=== PATIENT | male | born 1980 | race Two or more races ===

== ENCOUNTER 2022-04-15 13:02 | Outpatient (CLI) | payer OTHER | END 2022-04-15 23:59 | disposition home or self-care (01) | LOC: LAB 13:02 | PROVIDERS: ATTEND Surgery | DX: Z01.812 Encounter for preprocedural laboratory examination (principal); Z20.822 Contact with and (suspected) exposure to COVID-19 | CPT/HCPCS: U0003; C9803 ==

== ENCOUNTER 2022-04-22 07:01 | Inpatient (IN) | payer OTHER ==
[2022-04-22] VITALS (10 sets, daily range): BP systolic 110–165; BP diastolic 67–107
[~2022-04-22] VITALS: Ht 172.7 cm; Wt 183.7 kg
--- NOTE | 2022-04-22 07:15 | NUR ---
RN Receiving Report PT AOx4, able to express his own concerns. Arrived to unit walking. Patient states he is here for a surgery, consents. Patient able to provide his own medical history. Reviewed Consent and procedure, initiated IV on left hand 18g saline lock, no sign of infiltration, intact. Pt signed consents for Blood transfusion, anesthesia and procedure. Blood Sugar 77. Vital Signs are Stable. Educated patient on importance of post op care. All safety precautions taken, call light and table within reach, bed at lowest position.
[2022-04-22] MEDS ORDERED: BUPIVACAINE MPF 0.5% W/EPI INJ 30 ML VIAL ONE (07:24)
[2022-04-22] MEDS ORDERED: LIDOCAINE 1% INJ 50 ML MDV IJ ONE (07:25)
[2022-04-22] MEDS ORDERED: LIDOCAINE HCL/MPF 1% 30 ML VIAL IJ ONE (07:45)
[2022-04-22] MEDS ORDERED: ROCURONIUM BROMIDE 50 MG/5 ML ONE ×2 (09:15→12:40)
[2022-04-22] MEDS ORDERED: MIDAZOLAM HCL 2 MG/2ML VIAL ONE (09:15)
[2022-04-22] MEDS ORDERED: FENTANYL PF 100MCG/2ML AMPUL ONE (09:15)
[2022-04-22] MEDS ORDERED: HYDROMORPHONE INJ 2 MG/ML DISP.SYRIN ONE (09:15)
--- NOTE | 2022-04-22 09:15 | NUR ---
Surgery Accounting Assistant Pt picked up by surgery transport team. Pt AOx4 and to express his concerns, all questions answers pt states he is ready for procedure. NPO since 04/21/2022 @2320. IV patent. Pt stable.
[2022-04-22] MEDS ORDERED: SEMA1PEN SUBCUT (09:17)
[2022-04-22] MEDS ORDERED: ATOR10TA PO (09:17)
[2022-04-22] MEDS ORDERED: INSU200I4 SQ (09:17)
[2022-04-22] MEDS ORDERED: BUPR-319 PO (09:17)
[2022-04-22] MEDS ORDERED: DULO60CA64 PO (09:17)
[2022-04-22] MEDS ORDERED: PIOG30TA10 PO (09:17)
[2022-04-22] MEDS ORDERED: HEPARIN SODIUM, PORCINE 5000 UNITS/1 ML VIAL ONE (10:47)
[2022-04-22] MEDS ORDERED: SEVOFLURANE 250 ML BOTTLE IH ONE (12:40)
[2022-04-22] MEDS ORDERED: HEMOSTATIC MATRIX 8 ML 1 EACH PAD MC ONE (13:55)
[2022-04-22] MEDS ORDERED: ONDANSETRON HCL/PF 4 MG/2 ML VIAL IV PRN (15:30)
[2022-04-22] MEDS ORDERED: HYDROCODONE/APAP 5/325MG TABLET PO PRN ×4 (16:00→20:30)
[2022-04-22] MEDS ORDERED: FENTANYL PF 100MCG/2ML AMPUL IV PRN (16:00)
[2022-04-22] MEDS ORDERED: ACETAMINOPHEN ES 500 MG TABLET PO PRN (16:00)
--- NOTE | 2022-04-22 17:15 | NUR ---
RN Receiving Report. PT AOx4, able to express his own concerns pt states feeling tired and moderate pain. at bedside, pts Vital Signs are Stable. Made pt aware of plan of Care, pt and agree. Pt aware he will be staying over night, All questions answered, 5 abdominal dressings clen, dry and intact. TAMIKO drain with no drain/fluid. Per Surgery nurse pt on 2lt. of O2 for comfort. All safety precautions taken, call light and table within reach, bed at lowest position. Will continue to monitor throughout shift. IV on left hand with no signs of infiltration.
[2022-04-22] MEDS: METOCLOPRAMIDE HCL 10 MG/2 ML VIAL IV SCH ×2 (17:36→23:41)
[2022-04-22] MEDS ORDERED: *INSULIN REGULAR(HUMULIN R)HUM 100 UNIT/ML VIAL SQ PRN (18:00)
[2022-04-22] MEDS ORDERED: DEXTROSE 50%-WATER 50 ML DISP.SYRIN IV PRN (18:00)
--- NOTE | 2022-04-22 18:19 | NUR ---
RN Closing Note. PT AOx4, able to express his own concerns. at bedside, pts Vital Signs are Stable. TAMIKO drain with no drain/fluid. All safety precautions taken, call light and table within reach, bed at lowest position. Will continue to monitor throughout shift.
--- NOTE | 2022-04-22 19:45 | NUR ---
MSRN SEEN LAYING ON BED WITH TOO MUCH DISCOMFORTS. STATED HAS BEEN HAVING SEVERE ABDOMINAL PAIN, NO N/V, BP SLIGHTLY ELEVATED. ABLE TO TOLERATE 30 CC WATER PER ORDERS. ASSISTED TO SIT ON THE SIDE OF HIS BED, KILPATRICK TO GRAVITY DRAINING CLEAR YELLOW OUTPUT IN FAIR AMOUNT. TAMIKO DRAIN SMALL OUTPUT OF THIS TIME, LAP SITES DRESSING DRY AND INTACT NO BLEEDING OR DRAINAGE. STATED HAD TYLENOL EARLIER AND DOES NOT SEEM TO HELP HIS PAIN. WILL CLARIFY FENTANYL AND HEPARIN ORDERS.
--- NOTE | 2022-04-22 19:55 | NUR ---
MSRN PLACED CALL TO BREAK UP WORKER YG Horner WILL INFORM PATIENTS PAIN MGT AND HEPARIN
--- NOTE | 2022-04-22 20:05 | NUR ---
MSRN PLACED CALL TO DR MEL OSEI SURGEON REGARDING HEPARIN AND PAIN MED PATIENT REQUESTING DILAUDED INSTEAD.
[2022-04-22] MEDS ORDERED: HEPARIN SODIUM, PORCINE 5000 UNITS/1 ML VIAL SQ ONE (20:30)
--- NOTE | 2022-04-22 20:41 | NUR ---
MSRN BEBETO YG ORDERS RECEIVED. MAY START HEPARIN TONIGHT. FENTANYL FOR PAIN CAN BE GIVEN, PHARMACY STATED CAN GIVE LOW DOSE FENTANYL 25 MCG ORDERED WITH V/S MONITORING
--- NOTE | 2022-04-22 20:53 | NUR ---
MSRN SURGEON AWARE, MAY START HEPARIN TONIGHT.
--- NOTE | 2022-04-22 21:17 | NUR ---
MSRN RECEIVED ORDERS FROM DR. OSEI TO DC FENTANYL AND MAY HAVE DILAUDED 0.4 MG Q3 HRS PRN AND NEURONTIN 300 MG PO Q 8HRS.
[2022-04-22] MEDS ORDERED: HYDROMORPHONE 1 MG/1 ML DISP.SYRIN IV PRN (21:30)
[2022-04-22] MEDS: IV D5/0.45 NACL 1,000 ML IV PRN (21:43)
[2022-04-22] MEDS: GABAPENTIN 300 MG CAPSULE PO SCH (22:45)
[2022-04-22] MEDS: BLOOD SUGAR DIAGNOSTIC 1 EACH STRIP VI SCH (22:46)
--- NOTE | 2022-04-22 22:47 | NUR ---
MSRN DILAUDED 0.4 MG IVP ADMINISTERED ORDERED BEDREST FOR NOW. TAMIKO DRAIN SEROSANGUINOUS DRAINAGE OUTPUT MONITORED.
--- NOTE | 2022-04-22 23:00 | NUR ---
MSRN REQUESTED KILPATRICK OUT, STATED ADDING DISCOMFORTS TO HIS ABDOMINAL PAIN. EXPLAINED NEED TO HAVE KILPATRICK , STATED WILL TAKE HIS RISK NO MATTER WHAT IT TAKES. KILPATRICK TAKEN OUT URINAL PROVIDED, REMINDED STRICT I/O NEED TO MEASURE URINARY OUTPUT. WELL UNDERSTOOD.
[2022-04-23] VITALS: BP 126/84
--- NOTE | 2022-04-23 00:01 | NUR ---
MSRN ASLEEP EASILY AWAKENED WHEN CALLED. PAIN LEVEL AT 2 TO 4 OF THIS TIME. PRESENT IVF CONTINUED. KEPT NPO FOR NOW FOR UPPER GI GASTROGRAFIN STUDY IN AM. PATIENT INSTRUCTED. WELL UNDERSTOOD. WENT BACKTO SLEEP.
[2022-04-23 04:00] VITALS: BP 114/56
[2022-04-23] MEDS: METOCLOPRAMIDE HCL 10 MG/2 ML VIAL IV SCH ×3 (05:56→18:32)
[2022-04-23] MEDS: BLOOD SUGAR DIAGNOSTIC 1 EACH STRIP VI SCH ×4 (06:06→21:33)
--- NOTE | 2022-04-23 06:21 | NUR ---
MSRN LABS DRAWN, [facility] A[facility]IN TOLERABLE. VOIDED EARLIER 200 AND ANOTHER 400 CC CLEAR URINE OUTPUT. REMINDED TO CALL STAFF WHENEVER HE NEEDS TO GO RESTROOM, STATED HAVENT PASS GAS YET. NPO MAINTAINED FOR UPPER GI GASTROGRAFFING STUDY THIS AM.
[2022-04-23 06:50] LABS: BASOPHILS % (AUTO) 0.2 % (0.0-2.0); HEMATOCRIT 44 % (39-51); LYMPHOCYTES # (AUTO) 1.1 K/uL (0.8-4.8); LYMPHOCYTES % (AUTO) 7.3 % (20.0-44.0); MEAN CORPUSCULAR HGB CONC 32 g/dl (31.0-36.0); MEAN CORPUSCULAR VOLUME 83 fL (80-96); MONOCYTES # (AUTO) 1.3 K/uL (0.1-1.30); MONOCYTES % (AUTO) 8.2 % (2.0-12.0); NEUTROPHILS % (AUTO) 84.3 % (43.0-81.0); PLATELET COUNT (AUTO) 189 K/uL (150-450); RED BLOOD CELL COUNT(AUTO) 5.36 MIL/uL (4.5-6.0); WHITE BLOOD COUNT (AUTO) 15.4 K/uL (4.3-11.0)
[2022-04-23 07:21] LABS: CALCIUM, SERUM 8.5 mg/dL (8.5-10.1); CREATININE 1.1 mg/dL (0.6-1.3); MAGNESIUM 2.3 mg/dL (1.8-2.4); PHOSPHORUS 4.1 mg/dL (2.5-4.9); POTASSIUM 5.1 mmol/L (3.5-5.1)
--- NOTE | 2022-04-23 07:30 | NUR ---
RN Receiving Note PT AOx4, able to express his own concerns. Patient with no signs of distress, states dry throat. Discussed plan of care with patient and he agrees, pt will cont NPO till imaging test pending is done. Educated pt on importance of following diet and caring for surgery site. IV site with no signs of infiltration, no pain reported at site. All Safety precautions taken, call and table within reach, bed at lowest position. Will continue to monitor throughout shift, provide care as needed, and medications as prescribed.
[2022-04-23 08:00] VITALS: BP 120/72
[2022-04-23] MEDS ORDERED: DIATR MEGLU/DIATRIZOATE SODIUM 120 ML BOTTLE (GASTROGRAPHIN) ONE (09:48)
[2022-04-23] MEDS: IV D5/0.45 NACL 1,000 ML IV PRN (09:59)
[2022-04-23] MEDS: PANTOPRAZOLE 40 MG/PACK PACK PO SCH (12:32)
[2022-04-23] MEDS: GABAPENTIN 300 MG CAPSULE PO SCH ×3 (12:32→21:26)
[2022-04-23] MEDS: HEPARIN SODIUM, PORCINE 5000 UNITS/1 ML VIAL SQ SCH ×3 (12:33→21:27)
[2022-04-23 16:00] VITALS: BP 149/93
[2022-04-23] MEDS: HYDROCODONE/APAP 5/325MG TABLET PO PRN (16:01)
--- NOTE | 2022-04-23 18:02 | NUR ---
RN Closing Notes Pt AOx4, able to express his own concerns. Patient has been tolerating liquids well. Per Surgeon states it is ok to administer heparin as ordered, Q8H. Patient has been ambulating freely. PT on room Air with no signs of distress. Fluids and medications administered as prescribed. Patient states he is ready for discharge. Educated on importance of following diet and keeping surgery site clean and dry. All safety precautions taken, call light and table within reach, bed at lowest position. Patient wearing socks and following fall precautions.
--- NOTE | 2022-04-23 19:30 | NUR ---
RN OPENING NOTE PATIENT IN BED, EYES CLOSED, EASILY AWAKENED VIA VERBAL AND TOUCH STIMULI. PATIENT IS ON RA, TOLERATING WELL, NO SOB OR RESPIRATORY DISTRESS NOTED. BREATHING EVEN AND UNLABORED. PATIENT HAS A TAMIKO DRAIN PRESENT CONNECTED TO ABD SX INCISIONS. PATIENT DOES NOT VERBALIZE ANY PAIN AT THIS TIME. PATIENT HAS A L HAND 18G IV ACCESS WITH IVF ONGOING. SAFETY MEASURES IN PLACE: BED LOCKED AND IN LOWEST POSITION, CALL LIGHT WITHIN REACH.
[2022-04-23 20:00] VITALS: BP 121/72
[2022-04-24] MEDS: METOCLOPRAMIDE HCL 10 MG/2 ML VIAL IV SCH ×4 (00:18→17:22)
[2022-04-24] MEDS: IV D5/0.45 NACL 1,000 ML IV PRN (05:00)
[2022-04-24] MEDS: HEPARIN SODIUM, PORCINE 5000 UNITS/1 ML VIAL SQ SCH ×3 (05:02→20:51)
[2022-04-24] MEDS: HYDROCODONE/APAP 5/325MG TABLET PO PRN (05:15)
--- NOTE | 2022-04-24 05:15 | NUR ---
RN NOTE NORCO 5/325 1 TAB GIVEN FOR PAIN 6/10 ON HIS ABDOMEN.
[2022-04-24] MEDS: BLOOD SUGAR DIAGNOSTIC 1 EACH STRIP VI SCH ×4 (06:32→22:14)
[2022-04-24] MEDS: INSULIN REGULAR, HUMAN 100 UNIT/ML 3 ML VIAL SQ PRN (06:33)
--- NOTE | 2022-04-24 06:39 | NUR ---
RN CLOSING NOTE PATIENT IN BED, EYES CLOSED, SLEEPING. EASILY AWAKENED WITH VERBAL AND TOUCH STIMULI. PATIENT IS ON RA, TOLERATING WELL, NO SOB OR RESPIRATORY DISTRESS NOTED. BREATHING EVEN AND UNLABORED. PATIENT HAS A TAMIKO DRAIN PRESENT CONNECTED TO ABD SX INCISIONS, 40 ML SEROSANGUINEOUS OUTPUT. PATIENT DOES NOT VERBALIZE ANY PAIN AT THIS TIME. PAIN MANAGED WITH NORCO. PATIENT HAS A L HAND 18G IV ACCESS WITH IVF ONGOING. SAFETY MEASURES IN PLACE: BED LOCKED AND IN LOWEST POSITION, CALL LIGHT WITHIN REACH. ALL NEEDS MET AND ATTENDED. ALL ORDERS CARRIED OUT. WILL ENDORSE TO DAY SHIFT NURSE FOR ERIS.
--- NOTE | 2022-04-24 07:56 | NUR ---
RN OPENING NOTE PATIENT RECEIVED IN BED, AO X 4, ABLE TO RESPONDS ALL STIMULI. IN NO ACUTE DISTRESS NOTED. RESPIRATORY EVEN AND UNLABORED ON ROOM AIR. SKIN IS WARM TO TOUCH, KEEP CLEAN/DRY. KEPT ELEVATED HOB FOR ENSURE AIRWAY AND ASPIRATION PRECAUTION, ALSO LOWEST POSITION OF THE BED, S/R UP X 2, BED ALARM IS ON AT ALL THE TIMES. ALL SAFETY PRECAUTION APPLIED. CALL LIGHT WITHIN REACH, WILL CONTINUE TO MONITOR.
[2022-04-24] MEDS: PANTOPRAZOLE 40 MG/PACK PACK PO SCH (08:37)
[2022-04-24] MEDS: GABAPENTIN 300 MG CAPSULE PO SCH ×3 (08:37→20:50)
[2022-04-24 12:22] LABS: BASOPHILS % (AUTO) 0.5 % (0.0-2.0); EOSINOPHILS % (AUTO) 0.7 % (0.0-6.0); HEMATOCRIT 43 % (39-51); HEMOGLOBIN 13.8 g/dL (13.5-17.5); LYMPHOCYTES # (AUTO) 1.5 K/uL (0.8-4.8); MEAN CORPUSCULAR HGB CONC 32 g/dl (31.0-36.0); MEAN CORPUSCULAR VOLUME 82 fL (80-96); MONOCYTES # (AUTO) 0.6 K/uL (0.1-1.30); MONOCYTES % (AUTO) 7.9 % (2.0-12.0); NEUTROPHILS # (AUTO) 5.8 K/uL (1.8-8.9); NEUTROPHILS % (AUTO) 71.9 % (43.0-81.0); PLATELET COUNT (AUTO) 194 K/uL (150-450); RED BLOOD CELL COUNT(AUTO) 5.23 MIL/uL (4.5-6.0)
[2022-04-24 16:00] VITALS: BP 139/86
--- NOTE | 2022-04-24 18:37 | NUR ---
RN CLOSING NOTE PATIENT IN BED RESTING, CONFUSED. IN NO ACUTE DISTRESS NOTED. RESPIRATORY EVEN AND UNLABORED IN ROOM AIR. SKIN IS WARM TO TOUCH, KEEP CLEAN/DRY. 45CC OUT FROM TAMIKO DRAIN; SEROSANGUINEOUS CHARACTERISTIC. KEPT LOWEST BED POSITION AND LOCKED. BED ALARM IS ON AT ALL THE TIMES. ALL SAFETY MEASURED IN PLACED. CALL LIGHT WITHIN REACH, WILL ENDORSED TO NEXT SHIFT. Addendum: 04/24/22 at 1848 by VITA RIVERA RN ERROR
--- NOTE | 2022-04-24 18:48 | NUR ---
RN CLOSING NOTE PATIENT IN BED RESTING, CONFUSED. IN NO ACUTE DISTRESS NOTED. RESPIRATORY EVEN AND UNLABORED IN ROOM AIR. SKIN IS WARM TO TOUCH, KEEP CLEAN/DRY. 45CC OUT FROM TAMIKO DRAIN; SEROSANGUINEOUS CHARACTERISTIC. KEPT LOWEST BED POSITION AND LOCKED. BED ALARM IS ON AT ALL THE TIMES. ALL SAFETY MEASURED IN PLACED. CALL LIGHT WITHIN REACH, WILL ENDORSED TO NEXT SHIFT.
--- NOTE | 2022-04-24 19:30 | NUR ---
noc rn opening received patient in bed with eyes closed easy to arouse. a/ox4 no s/s of apparent distress on room air. denies pain at this time. R. TAMIKO drain draining serosanguineous drainage. lt. hand iv running d5 1/2 ns @90mls/hr. oriented with the use of call light. safety in place. will continue with plan of care for patient.
[2022-04-24 20:00] VITALS: BP 123/70
[2022-04-25] MEDS: METOCLOPRAMIDE HCL 10 MG/2 ML VIAL IV SCH ×3 (00:27→12:15)
[2022-04-25] MEDS: HEPARIN SODIUM, PORCINE 5000 UNITS/1 ML VIAL SQ SCH ×2 (05:59→12:15)
[2022-04-25] MEDS: INSULIN REGULAR, HUMAN 100 UNIT/ML 3 ML VIAL SQ PRN ×2 (07:01→11:33)
[2022-04-25] MEDS: BLOOD SUGAR DIAGNOSTIC 1 EACH STRIP VI SCH ×2 (07:01→11:33)
--- NOTE | 2022-04-25 07:30 | NUR ---
RN OPENING NOTES RECEIVED PATIENT AWAKE IN BED, A/O X4. NO SIGNS OF ACUTE DISTRESS NOTED. ON ROOM AIR, TOLERATING WELL, NO SOB NOTED, BREATHING EVEN AND UNLABORED. DENIES ANY PAIN AT THIS TIME. NOTED WITH IV ACCESS ON LEFT HAND #18G, INTACT AND PATENT, SALINE LOCKED. NOTED WITH TAMIKO BULB TO DRAIN SUCTION ON ABDOMINAL AREA WITH SEROSANGUINEOUS OUTPUT. SAFETY MEASURE IN PLACE.ED IN LOWEST AND LOCKED POSITION, SIDE RAILS UP X2, CALL LIGHT PLACED WITHIN EASY REACH. WILL CONTINUE TO MONITOR PATIENT.
[2022-04-25 08:00] VITALS: BP 123/76
[2022-04-25] MEDS: GABAPENTIN 300 MG CAPSULE PO SCH ×2 (08:11→12:15)
[2022-04-25] MEDS: PANTOPRAZOLE 40 MG/PACK PACK PO SCH (08:11)
[2022-04-25] MEDS ORDERED: PANT40SU2 PO (13:27)
[2022-04-25] MEDS ORDERED: Hydrocodone/Apap 5/325MG PO (13:27)
[2022-04-25] MEDS ORDERED: ACET-73 PO (13:27)
[2022-04-25] MEDS ORDERED: GABA300C PO (13:27)
--- NOTE | 2022-04-25 15:10 | NUR ---
DEBURRER NOTE PATIENT DISCHARGED HOME IN STABLE CONDITION. PATIENT REMAINS AWAKE, A/O X4, VERBALLY RESPONSIVE, NO SIGNS OF ACUTE DISTRESS NOTED. VITAL SIGNS TAKEN AND RECORDED. IV ACCESS ON LEFT HAND REMOVED, NO BLEEDING NOTED, PRESSURE DRESSING APPLIED TO SITE. ARM NAME BAND REMOVED. ALL BELONGINGS ACCOUNTED FOR. FORM SIGNED BY PATIENT. EXIT CARE FOLDER GIVEN TO PATIENT. HEALTH TEACHINGS AND DISCHARGE INSTRUCTIONS PROVIDED TO PATIENT WITH VERBALIZATION OF UNDERSTANDING. PRESCRIPTION GIVEN TO PATIENT. PATIENT AMBULATORY LEFT UNIT @1506 PICKED UP BY , TRANSPORTED VIA PRIVATE CAR. CN AWARE OF DISCHARGE. Addendum: 04/25/22 at 1525 by JOSSIE SMITH RN ADDENDUM: PATIENT'S ABDOMINAL SURGICAL DRESSING C/D/I. TAMIKO TO SUCTION BULB INTACT, DRAINING SEROSANGUINEOUS OUTPUT. ABLE TO REMOVE 25 CC OUTPUT. INSTRUCTED AND DEMONSTRATED TO PATIENT ON HOW TO DRAIN TAMIKO BULB WITH VERBALIZATION OF UNDERSTANDING.
== END 2022-04-25 15:10 | disposition home or self-care (01) | DRG 621 ==
LOC: DS 07:01 → MED 07:03
PROVIDERS: ADMIT Nurse Practitioner Acute Care; ATTEND Nurse Practitioner Acute Care
PROC: 0D164ZA Bypass Stomach to Jejunum, Percutaneous Endoscopic Approach (ICD-10-PCS; principal; 2022-04-22)
DX: E66.01 Morbid (severe) obesity due to excess calories (principal); Z20.822 Contact with and (suspected) exposure to COVID-19; K66.0 Peritoneal adhesions (postprocedural) (postinfection); Z68.44 Body mass index [BMI] 60.0-69.9, adult; E78.5 Hyperlipidemia, unspecified; Z79.4 Long term (current) use of insulin; Z79.899 Other long term (current) drug therapy; D72.829 Elevated white blood cell count, unspecified; E11.65 Type 2 diabetes mellitus with hyperglycemia
CPT/HCPCS: 36415; 71045-TC; 74246-TC; 80048-TC; 82962-TC; 83735-TC; 84100-TC; 85025-TC; 87081-TC; G0378; J0330; J0690; J1100; J1170; J1644; J1815; J1885; J2250; J2405; J2704; J2765; J3010; J3490; J7030; Q9963